=== PATIENT | female | born 1985 | race Caucasian/White ===

== ENCOUNTER 2020-01-01 06:15 | Inpatient (IN) | payer BC ==
[2020-01-01] MEDS ORDERED: DINOPROSTONE 10 MG INSERT.ER VAGINAL ONE (16:30)
[2020-01-02] MEDS ORDERED: TERBUTALINE 1 MG/ML VIAL SQ PRN (01:11)
[2020-01-02] MEDS ORDERED: OXYTOCIN 10 UNIT/ML 1 ML VIAL IM PRN (01:11)
[2020-01-02] MEDS ORDERED: METHYLERGONOVINE 0.2 MG/ML 1 ML AMP IM PRN (01:11)
[2020-01-02] MEDS ORDERED: CARBOPROST TROMETHAMINE 250 MCG/ML 1 ML AMP IM PRN (01:11)
[2020-01-02] MEDS ORDERED: LIDOCAINE 0.5% (PF) 5 MG/ML (50 ML SDV) SQ PRN (01:11)
[2020-01-02] MEDS: LACTATED RINGERS 1,000 ML IV SCH ×4 (01:23→19:51)
[2020-01-02] MEDS: BUTORPHANOL 1 MG/ML 1 ML VIAL IV PRN ×2 (01:24→08:10)
[2020-01-02 01:40] LABS: Basophils # (A) 0.1 k/uL (0-0.2); Basophils % (A) 0 %; Eosinophils % (A) 0 %; HCT 35.4 % (34.0-46.0); HGB 11.8 gm/dL (11.4-16.0); Lymphocytes # (A) 2.4 k/uL (1.0-4.8); Lymphocytes % (A) 17 %; MCH 30.6 pg (25.0-35.0); MCHC 33.3 g/dL (31.0-37.0); MCV 91.9 fL (80.0-100.0); Mean Platelet Volume 7.4; Monocytes # (A) 0.8 k/uL (0-1.0); Monocytes % (A) 6 %; Neutrophils # (A) 10.6 k/uL (1.3-7.7); Neutrophils % (A) 75 %; Platelet Count 241 k/uL (150-450); RBC 3.85 m/uL (3.80-5.40); RDW 13.1 % (11.5-15.5); WBC 14.2 k/uL (3.8-10.6)
[2020-01-02] MEDS: OXYTOCIN 30 UNITS/500 ML NS 30 UNIT in SALINE 1 500ML.BAG IV SCH (02:39)
[2020-01-02] MEDS ORDERED: ROPIVACAINE 5MG/ML 20ML VIAL ONE (11:10)
[2020-01-02] MEDS ORDERED: fentaNYL (PF) 50 MCG/ML 5 ML AMP ONE (11:10)
[2020-01-02] MEDS ORDERED: SODIUM CHLORIDE 0.9% 100 ML BAG ONE (11:10)
--- NOTE | 2020-01-02 16:56 | P.HPOB ---
History of Present Illness H&P Date: 01/01/20 Chief Complaint: Induction of labor 34-year-old presents at 39 weeks and 5 days for induction of labor. Her cervix is closed, 6 effaced, -2 station. She is elizabeth irregularly. heart tones 130 with moderate variability and reactive. Review of Systems All systems: negative Constitutional: Denies chills, Denies fever Eyes: denies blurred vision, denies pain Ears, nose, mouth and throat: Denies headache, Denies sore throat Cardiovascular: Denies chest pain, Denies shortness of breath Respiratory: Denies cough Gastrointestinal: Denies abdominal pain, Denies diarrhea, Denies nausea, Denies vomiting Genitourinary: Denies dysuria, Denies hematuria Musculoskeletal: Denies myalgias Integumentary: Denies pruritus, Denies rash Neurological: Denies numbness, Denies weakness Psychiatric: Denies anxiety, Denies depression Endocrine: Denies fatigue, Denies weight change Past Medical History Past Medical History: GERD/Reflux Additional Past Medical History / Comment(s): Gastroparesis. Obstetric history: This is her first and she's had care with me since the first trimester. Blood type is O+, hepatitis, rubella immune, but is B-, GBS negative, RPR nonreactive. History of Any Multi-Drug Resistant Organisms: None Reported Past Surgical History: Breast Surgery, Cholecystectomy, Orthopedic Surgery Additional Past Surgical History / Comment(s): Breast augmentation X2, right wrist surgery X2, wisdom teeth, lipomas removed from umbilical area. Past Anesthesia/Blood Transfusion Reactions: No Reported Reaction Past Psychological History: Anxiety Smoking Status: Former smoker Past Alcohol Use History: None Reported Additional Past Alcohol Use History / Comment(s): Quit smoking 13 yrs ago. Past Drug Use History: None Reported Medications and Allergies Home Medications Medication Instructions Recorded Confirmed Type Pnv,Calcium 72/Iron/Folic Acid 1 each PO DAILY 01/01/20 01/01/20 History [ Plus Tablet] Allergies Allergy/AdvReac Type Severity Reaction Status Date / Time cefuroxime [From Ceftin] Allergy Diarrhea Verified 01/01/20 16:13 Exam Osteopathic Statement: *. No significant issues noted on an osteopathic structural exam other than those noted in the History and Physical/Consult. Intake and Output 01/02/20 01/02/20 01/02/20 06:59 14:59 22:59 Other: # Voids 2 Heart: Regular rate and rhythm Lungs: Clear to auscultation bilaterally Abdomen: Soft, nontender Extremities: Negative Homans sign Results Result Diagrams: 01/02/20 01:31 Abnormal Lab Results - Last 24 Hours (Table) 01/02/20 Range/Units 01:31 WBC 14.2 H (3.8-10.6) k/uL Neutrophils # 10.6 H (1.3-7.7) k/uL Assessment and Plan (1) Normal labor Current Visit: Yes Status: Acute Code(s): O80 - ENCOUNTER FOR FULL-TERM UNCOMPLICATED DELIVERY; Z37.9 - OUTCOME OF DELIVERY, UNSPECIFIED SNOMED Code(s): 69464976 Plan: 1. Induction of labor with Cervidil and then amniotomy and Pitocin in the morning. 2. Anticipate normal vaginal delivery
[2020-01-02] MEDS ORDERED: CLINDAMYCIN 900 MG in DEXTROSE 5% IN WATER 50 ML IVPB ONE ×2 (19:40)
[2020-01-02] MEDS ORDERED: CITRIC ACID-SODIUM CITRATE 15 ML CUP PO ONE (19:40)
[2020-01-02] MEDS ORDERED: GENTAMICIN 340 MG in SODIUM CHLORIDE 0.9% 100 ML IVPB ONE (19:40)
[2020-01-02] MEDS ORDERED: ONDANSETRON 4 MG/2 ML VIAL ONE (20:03)
[2020-01-02] MEDS ORDERED: OXYTOCIN 10 UNIT/ML 1 ML VIAL ONE (20:03)
[2020-01-02] MEDS ORDERED: KETOROLAC 15 MG/ML 1 ML VIAL ONE (20:03)
[2020-01-02] MEDS ORDERED: NALOXONE 0.4 MG/ML 1 ML VIAL IV PRN (20:24)
[2020-01-02] MEDS ORDERED: NALBUPHINE 10 MG/ML (1 ML AMP) IV PRN (20:24)
[2020-01-02] MEDS ORDERED: ONDANSETRON 4 MG/2 ML VIAL IVP PRN (20:24)
[2020-01-02] MEDS ORDERED: HYDROmorphone 0.5 MG/0.5 ML SYRINGE IVP PRN (20:24)
[2020-01-02] MEDS ORDERED: diphenhydrAMINE 50 MG/ML 1 ML VIAL IVP PRN ×3 (20:24→20:45)
[2020-01-02] MEDS ORDERED: ZOLPIDEM 5 MG TAB PO PRN (20:45)
[2020-01-02] MEDS ORDERED: diphenhydrAMINE 50 MG CAP PO PRN (20:45)
[2020-01-02] MEDS ORDERED: diphenhydrAMINE 25 MG CAP PO PRN (20:45)
[2020-01-02] MEDS ORDERED: HYDROcodone/APAP 7.5-325MG 1 EACH TAB PO PRN (20:45)
[2020-01-02] MEDS ORDERED: METOCLOPRAMIDE 5 MG/ML 2 ML VIAL IVP PRN (20:45)
[2020-01-02] MEDS ORDERED: OXYTOCIN 20 UNITS/1000 ML NS 1,000 ML IV SCH (20:45)
[2020-01-02] MEDS ORDERED: LANOLIN CREAM 5 GM TUBE TOPICAL PRN (20:45)
[2020-01-02] MEDS ORDERED: ACETAMINOPHEN TAB 325 MG TAB PO PRN (20:45)
[2020-01-02] MEDS: KETOROLAC 15 MG/ML 1 ML VIAL IVP PRN (21:25)
[2020-01-03] MEDS: LACTATED RINGERS 1,000 ML IV SCH ×3 (00:10→22:49)
[2020-01-03] MEDS: KETOROLAC 15 MG/ML 1 ML VIAL IVP PRN ×2 (04:42→10:42)
[2020-01-03 06:15] LABS: Basophils % (A) 0 %; Eosinophils # (A) 0.1 k/uL (0-0.7); Eosinophils % (A) 0 %; HCT 32.7 % (34.0-46.0); Lymphocytes % (A) 13 %; MCH 30.7 pg (25.0-35.0); MCHC 33.5 g/dL (31.0-37.0); MCV 91.7 fL (80.0-100.0); Mean Platelet Volume 8.2; Monocytes # (A) 1.4 k/uL (0-1.0); Monocytes % (A) 6 %; Neutrophils # (A) 18.8 k/uL (1.3-7.7); Neutrophils % (A) 80 %; Platelet Count 243 k/uL (150-450); RBC 3.57 m/uL (3.80-5.40); RDW 13.1 % (11.5-15.5); WBC 23.5 k/uL (3.8-10.6)
--- NOTE | 2020-01-03 08:23 | P.PNOBGPC ---
Subjective - Subjective Principal diagnosis: Status post primary low transverse postop day #1 Interval history: Patient seen and examined. Denies nausea, vomiting, chest pain, shortness of breath or any calf pain. She is seen ambulating in her room. Patient reports: Reports appetite normal, Reports voiding normally, Reports pain well controlled, Reports ambulating normally [place]: doing well Objective - Vital Signs Latest vital signs: Vital Signs Temp Pulse Resp BP Pulse Ox 01/03/20 06:17 16 01/03/20 05:00 16 96 01/03/20 04:00 98.9 F 106 H 16 124/74 96 01/03/20 03:00 16 01/03/20 01:00 16 99 01/02/20 23:25 16 01/02/20 22:50 99.4 F 133 H 16 131/61 99 01/02/20 22:20 98.9 F 130 H 16 145/78 98 01/02/20 21:50 98.7 F 123 H 16 150/72 98 01/02/20 21:35 99.0 F 129 H 16 135/85 99 01/02/20 21:25 16 99 01/02/20 21:20 98.8 F 130 H 16 161/83 99 01/02/20 21:05 98.2 F 123 H 18 154/74 99 01/02/20 20:50 98.3 F 129 H 18 154/79 98 01/02/20 20:25 18 98 Intake and Output 01/02/20 01/03/20 01/03/20 22:59 06:59 14:59 Output Total 250 200 Balance -250 -200 Output: Urine 250 200 Uretheral (Ann) 200 Other: # Voids 0 - Exam Lungs: bilateral: normal Chest: Normal S1, Normal S2 Extremities: Present: normal Abdomen: Present: normal appearance, soft. Absent: distention, tenderness Incision: Present: normal, dry, intact Uterus: Present: normal, firm - Labs Labs: Abnormal Lab Results - Last 24 Hours (Table) 01/03/20 Range/Units 06:03 WBC 23.5 H (3.8-10.6) k/uL RBC 3.57 L (3.80-5.40) m/uL Hgb 11.0 L (11.4-16.0) gm/dL Hct 32.7 L (34.0-46.0) % Neutrophils # 18.8 H (1.3-7.7) k/uL Monocytes # 1.4 H (0-1.0) k/uL Assessment and Plan (1) Normal labor Current Visit: Yes Status: Resolved Code(s): O80 - ENCOUNTER FOR FULL-TERM UNCOMPLICATED DELIVERY; Z37.9 - OUTCOME OF DELIVERY, UNSPECIFIED SNOMED Code(s): 05173745 (2) Status post primary low transverse section Current Visit: Yes Status: Acute Code(s): Z98.891 - HISTORY OF UTERINE SCAR FROM PREVIOUS SURGERY SNOMED Code(s): 731406293 Plan: 1. Increase ambulation 2. Regular diet 3. Pain control 4. solutions market consultant
--- NOTE | 2020-01-03 09:21 | P.PN ---
Progress Note - Text Progress Note Date: 01/03/20 Postoperative day 1 status post section under epidural anesthesia, and epidural morphine given for postoperative analgesia, patient doing well, there is no anesthesia related complications, Patient had no headache, vital signs stable , Assessment and plan= postop day 1 status post , doing well there is no anesthesia related complication. note= patient was seen 06:50 in the morning
[2020-01-03] MEDS: SENNOSIDES-DOCUSATE SODIUM 1 EACH TAB PO SCH ×2 (10:43→21:13)
--- NOTE | 2020-01-03 12:10 | P.OP ---
Date of Procedure: 01/02/20 Preoperative Diagnosis: 1. at 39 and 6 2. Failure to progress Postoperative Diagnosis: 1. at 39 and 6 2. Failure to progress Procedure(s) Performed: Primary low transverse Anesthesia: epidural Surgeon: Bhakti Moe Starting Sheet Tank Operator #1: Natali Davis Estimated Blood Loss (ml): 656 IV fluids (ml): 1,000 Urine output (ml): 200 Pathology: other (Placenta) Condition: stable Disposition: floor Indications for Procedure: 34-year-old presented at 39 weeks and 6 days for induction of labor. She did have Cervidil and then Pitocin and amniotomy in the morning. She made 7 cm dilated but was this dilation for more than 2 hours with adequate contractions. Her temperature was starting to raise to about 100 and her heart rate was going up to 140. Informed consent was obtained and section was called. Operative Findings: Viable infant Apgars 9, 9, weight 8 lbs. 1 oz. Normal uterus, tubes, ovaries. Description of Procedure: Patient was taken to the operating room where epidural anesthesia was found be adequate. She was prepped and draped in normal sterile fashion in dorsal supine position with a leftward tilt. Pfannenstiel skin incision was made the scalpel and carried through to the underlying layer of fascia with the scalpel. Fascia was incised in midline and carried bilaterally with the Nash scissors. The superior aspect of the fascial incision was grasped with Zachery clamps elevated and the underlying rectus muscles dissected off with the Nash's. Attention was then turned to inferior aspect of same incision which in a similar fashion was grasped tented up and the underlying rectus muscles dissected off with the Nash's. The rectus muscles were the midline and the peritoneum was identified tented up and entered sharply with the scalpel. The incision was extended superiorly and inferiorly with good visualization of the bladder. The bladder blade was inserted and the vesicouterine peritoneum was incised the Metzenbaums then carried bilaterally and bladder flap created digitally. A low transverse incision was then made on the uterus with the scalpel. This was carried bilaterally and digital manner. 's head delivered atraumatically, nose and mouth bulb suctioned, cord clamped and cut, infant handed off to waiting nurses. Apgars 9,9, weight 8 lbs. 1 oz. Placenta delivered manually, intact with three-vessel cord. The uterus is exteriorized and cleared of all clots and debris. The uterine incision was closed with 0 Vicryl in a running locked fashion. Second layer of the same sutures used in imbricating fashion to obtain excellent hemostasis. Bladder flap was then reapproximated using 2-0 Vicryl in a running fashion. Both ovaries and tubes appeared normal. The uterus was placed back into the abdomen. The peritoneum was reapproximated using 2-0 Vicryl in a running fashion. The muscles were reapproximated using 2- 0 Vicryl in interrupted fashion. The fascia was reapproximated using 0 Vicryl in a running fashion. The subcutaneous tissues closed with 3-0 Vicryl running fashion. The skin was closed fco. Patient tolerated the procedure well, s ponge and instrument counts were correct times 2 and she was taken to the recovery room in stable condition.
[2020-01-03] MEDS: IBUPROFEN 600 MG TAB PO PRN (18:42)
[2020-01-03 22:47] VITALS: RESP 16
[2020-01-03] MEDS: OXYTOCIN 30 UNITS/500 ML NS 30 UNIT in SALINE 1 500ML.BAG IV SCH (22:49)
[2020-01-04] MEDS: IBUPROFEN 600 MG TAB PO PRN ×2 (04:22→13:18)
[2020-01-04] MEDS: SENNOSIDES-DOCUSATE SODIUM 1 EACH TAB PO SCH (08:43)
[2020-01-04 09:26] VITALS: BP 138/76; PULSE 80; TEMP 98.2
--- NOTE | 2020-01-04 12:00 | P.DS ---
Providers Date of admission: 01/01/20 15:59 Expected date of discharge: 01/04/20 Attending physician: Bhakti Moe Primary care physician: Stated None Hospital Course: Patient is doing very well post op day 2. She is ambulating, voiding and tolerating her diet. She voices no complaints and is requesting discharge home today. Prescription for [place] motor 4 to the pharmacy she'll follow up with Dr. Moe in 1 week. Discharge instructions are thoroughly and completely reviewed. All questions are answered for her. On physical exam vital signs are stable and afebrile. Heart regular, lungs clear, extremities without pain. Abdomen soft uterus firm and her incision is otherwise clean dry and intact. We'll plan to remove fco today prior to discharge. All the questions are answered for her at this time. Assessment postop day 2. Plan discharged home follow up with Dr. Moe in 1 week. Patient Condition at Discharge: Good Plan - Discharge Summary Discharge Rx Participant: Yes New Discharge Prescriptions: New Ibuprofen [Motrin] 600 mg PO Q6HR PRN #30 tab PRN Reason: Pain HYDROcodone/APAP 5-325MG [[place] 5-325] 1 tab PO Q4HR PRN #30 tab PRN Reason: Pain No Action Pnv,Calcium 72/Iron/Folic Acid [ Plus Tablet] 1 each PO DAILY Discharge Medication List Pnv,Calcium 72/Iron/Folic Acid [ Plus Tablet] 1 each PO DAILY 01/01/20 [History] HYDROcodone/APAP 5-325MG [[place] 5-325] 1 tab PO Q4HR PRN #30 tab 01/04/20 [Rx] Ibuprofen [Motrin] 600 mg PO Q6HR PRN #30 tab 01/04/20 [Rx] Follow up Appointment(s)/Referral(s): Bhakti Moe DO [Doctor of Osteopathic Medicine] - 1 Week Activity/Diet/Wound Care/Special Instructions: No heavy lifting, limit stairs and driving, and pelvic rest. If any high temperatures, heavy bleeding, or severe pain call my office Discharge Disposition: HOME SELF-CARE
== END 2020-01-04 16:48 | disposition home or self-care (01) | DRG 788 ==
LOC: 4FBP 15:59
PROVIDERS: ADMIT Obstetrics & Gynecology; ATTEND Obstetrics & Gynecology
PROC: 3E0P7VZ Introduction of Hormone into Female Reproductive, Via Natural or Artificial Opening (ICD-10-PCS; principal; 2020-01-02 20:26)
PROC: 3E033VJ Introduction of Other Hormone into Peripheral Vein, Percutaneous Approach (ICD-10-PCS; principal; 2020-01-02 20:26)
PROC: 10907ZC Drainage of Amniotic Fluid, Therapeutic from Products of Conception, Via Natural or Artificial Opening (ICD-10-PCS; principal; 2020-01-02 20:26)
PROC: 10D00Z1 Extraction of Products of Conception, Low, Open Approach (ICD-10-PCS; principal; 2020-01-02 20:26)
DX: O62.2 Other uterine inertia (principal); O64.8XX0 Obstructed labor due to other malposition and malpresentation, not applicable or unspecified; O99.344 Other mental disorders complicating childbirth; F41.9 Anxiety disorder, unspecified; K31.84 Gastroparesis; K21.9 Gastro-esophageal reflux disease without esophagitis; Z3A.39 39 weeks gestation of pregnancy; Z37.0 Single live birth; Z90.49 Acquired absence of other specified parts of digestive tract; Z87.891 Personal history of nicotine dependence; Z88.1 Allergy status to other antibiotic agents
CPT/HCPCS: 85025; 86850; 86900; 86901; 88307

== ENCOUNTER 2022-11-16 05:57 | Inpatient (IN) | payer BC ==
[2022-11-16] MEDS ORDERED: TRANEXAMIC 1,000 MG/100ML-NACL 1,000 MG in EMPTY BAG 1 BAG IV PRN (06:21)
[2022-11-16] MEDS ORDERED: miSOPROStoL 200 MCG TAB PO PRN (06:21)
[2022-11-16] MEDS ORDERED: METHYLERGONOVINE 0.2 MG/ML 1 ML AMP IM PRN (06:21)
[2022-11-16] MEDS ORDERED: TERBUTALINE 1 MG/ML VIAL SQ PRN (06:21)
[2022-11-16] MEDS ORDERED: CARBOPROST TROMETHAMINE 250 MCG/ML 1 ML AMP IM PRN (06:21)
[2022-11-16] MEDS ORDERED: OXYTOCIN 10 UNIT/ML 1 ML VIAL IM PRN (06:21)
[2022-11-16] MEDS ORDERED: LIDOCAINE 0.5% (PF) 5 MG/ML (50 ML SDV) SQ PRN (06:21)
[2022-11-16] MEDS: LACTATED RINGERS 1,000 ML IV SCH ×3 (06:40→16:45)
[2022-11-16] MEDS ORDERED: OXYTOCIN 30 UNITS/500 ML NS 30 UNIT in SALINE 1 500ML.BAG IV SCH ×2 (06:45→18:30)
[2022-11-16 06:58] LABS: Basophils # (A) 0.1 k/uL (0-0.2); Basophils % (A) 1 %; Eosinophils # (A) 0.1 k/uL (0-0.7); Eosinophils % (A) 1 %; HGB 12.4 gm/dL (11.4-16.0); Lymphocytes # (A) 2.1 k/uL (1.0-4.8); Lymphocytes % (A) 20 %; MCH 32.3 pg (25.0-35.0); MCHC 34.6 g/dL (31.0-37.0); MCV 93.3 fL (80.0-100.0); Mean Platelet Volume 7.9; Monocytes # (A) 0.8 k/uL (0-1.0); Monocytes % (A) 8 %; Neutrophils # (A) 7.6 k/uL (1.3-7.7); Neutrophils % (A) 71 %; Platelet Count 215 k/uL (150-450); RBC 3.86 m/uL (3.80-5.40); RDW 13.4 % (11.5-15.5); WBC 10.7 k/uL (3.8-10.6)
[2022-11-16] MEDS ORDERED: NALBUPHINE 10 MG/ML (10 ML MDV) IV PRN (10:38)
[2022-11-16] MEDS ORDERED: ROPIVACAINE 5 MG/ML 20 ML AMPULE ONE (11:38)
[2022-11-16] MEDS ORDERED: fentaNYL (PF) 50 MCG/ML 5 ML AMP ONE (11:38)
[2022-11-16] MEDS ORDERED: SODIUM CHLORIDE 0.9% 100 ML BAG ONE (11:38)
[2022-11-16] MEDS ORDERED: ZOLPIDEM 5 MG TAB PO PRN (18:27)
[2022-11-16] MEDS ORDERED: diphenhydrAMINE 25 MG CAP PO PRN (18:27)
[2022-11-16] MEDS ORDERED: diphenhydrAMINE 50 MG/ML 1 ML VIAL IVP PRN ×2 (18:27)
[2022-11-16] MEDS ORDERED: SIMETHICONE 80 MG CHEWABLE PO PRN (18:27)
[2022-11-16] MEDS ORDERED: LANOLIN CREAM 5 GM TUBE TOPICAL PRN (18:27)
[2022-11-16] MEDS ORDERED: diphenhydrAMINE 50 MG CAP PO PRN (18:27)
[2022-11-16] MEDS ORDERED: ACETAMINOPHEN TAB 325 MG TAB PO PRN (18:27)
[2022-11-16] MEDS ORDERED: BENZOCAINE/MENTHOL SPRAY 1 GM/SPRAY AEROSOL TOPICAL PRN (18:27)
[2022-11-16] MEDS ORDERED: HYDROCORTISONE 2.5% RECTAL CREAM 30 GM TUBE RECTAL PRN (18:27)
--- NOTE | 2022-11-16 18:31 | P.HPOB ---
History of Present Illness H&P Date: 11/16/22 Chief Complaint: TOLAC 37 year old for induction of labor, trial of labor after . Her cervix is 17 m dilated, 60% effaced, and -3 station. She is elizabeth irregularly. heart tones 135 with moderate variability and reactive. Patient has been counseled extensively on the risks and benefits of trial of labor after . Review of Systems All systems: negative Constitutional: Denies chills, Denies fever Eyes: denies blurred vision, denies pain Ears, nose, mouth and throat: Denies headache, Denies sore throat Cardiovascular: Denies chest pain, Denies shortness of breath Respiratory: Denies cough Gastrointestinal: Denies abdominal pain, Denies diarrhea, Denies nausea, Denies vomiting Genitourinary: Denies dysuria, Denies hematuria Musculoskeletal: Denies myalgias Integumentary: Denies pruritus, Denies rash Neurological: Denies numbness, Denies weakness Psychiatric: Denies anxiety, Denies depression Endocrine: Denies fatigue, Denies weight change Past Medical History Past Medical History: GERD/Reflux Additional Past Medical History / Comment(s): Gastroparesis. Obstetric history: First she had a section. This is her second and she's had care with me since the first trimester. Blood type is O+, hepatitis, rubella immune, but is B-, GBS negative, RPR nonreactive. History of Any Multi-Drug Resistant Organisms: None Reported Past Surgical History: Breast Surgery, Cholecystectomy, Orthopedic Surgery Additional Past Surgical History / Comment(s): Breast augmentation X2, right wrist surgery X2, wisdom teeth, lipomas removed from umbilical area. Past Anesthesia/Blood Transfusion Reactions: No Reported Reaction Past Psychological History: Anxiety Smoking Status: Former smoker Past Alcohol Use History: None Reported Additional Past Alcohol Use History / Comment(s): Quit smoking 13 yrs ago. Past Drug Use History: None Reported - Past Family History Father Family Medical History: Diabetes Mellitus, Hypertension Medications and Allergies Home Medications Medication Instructions Recorded Confirmed Type Vit No.180/Iron/Folic 1 each PO DAILY 01/01/20 11/16/22 History [ Plus Tablet] Aspirin 1 tab PO DAILY 11/16/22 11/16/22 History Allergies Allergy/AdvReac Type Severity Reaction Status Date / Time cefuroxime [From Ceftin] Allergy Diarrhea Verified 07/26/23 06:20 Exam Osteopathic Statement: *. No significant issues noted on an osteopathic structural exam other than those noted in the History and Physical/Consult. Vital Signs Temp Pulse Resp BP Pulse Ox 11/16/22 18:20 98.1 F 117 H 18 128/59 100 11/16/22 06:19 98.1 F 109 H 16 127/77 98 Intake and Output 11/16/22 11/16/22 11/16/22 06:59 14:59 22:59 Output Total 200 Balance -200 Output: Urine 200 Uretheral (Ann) 200 Other: # Voids 2 Weight 86.183 kg Heart: Regular rate and rhythm Lungs: Clear to auscultation bilaterally Abdomen: Soft, nontender Extremities: Negative Homans sign Results Result Diagrams: 11/16/22 06:30 Abnormal Lab Results - Last 24 Hours (Table) 11/16/22 Range/Units 06:30 WBC 10.7 H (3.8-10.6) k/uL Assessment and Plan (1) Previous delivery affecting Current Visit: Yes Status: Acute Code(s): O34.219 - MATERNAL CARE FOR UNSP TYPE SCAR FROM PREVIOUS DEL SNOMED Code(s): 826160320 (2) 40 weeks gestation of Current Visit: Yes Status: Acute Code(s): Z3A.40 - 40 WEEKS GESTATION OF SNOMED Code(s): 88600709 Plan: 1. Trial of labor after using amniotomy and Pitocin 2. Anticipate normal vaginal delivery
--- NOTE | 2022-11-16 18:33 | P.PROBDLV ---
Vaginal Delivery Note - . Vaginal Delivery Note: 37 year old for induction of labor, trial of labor after . Her cervix is 17 m dilated, 60% effaced, and -3 station. She is elizabeth irregularly. heart tones 135 with moderate variability and reactive. Patient has been counseled extensively on the risks and benefits of trial of labor after . Pitocin was started and amniotomy performed at 7:49 AM, thin meconium fluid noted. When the patient was uncomfortable she did use nitrous and then had some Nubain. This was not enough for pain control and she did get an epidural and she was about 2 cm dilated. Her cervix was completely dilated by 1715. She pushed, and delivered a viable female infant over intact perineum under epidural anesthesia at 1800. Head delivered OA, nuchal cord 1 easily reduced, anterior shoulder delivered gentle downward guidance followed by posterior shoulder and rest of body. Nose and mouth bulb suctioned, cord clamped and cut and placed on mother's abdomen. Apgars 8, 9, weight 8 pounds 1.3 ounces. Placenta delivered spontaneously, intact with three-vessel cord at 1803. Vagina, cervix, perineum and old scar were inspected. Second-degree midline laceration was repaired with 3-0 Vicryl. Estimated blood loss 300 mL. Mother and baby in stable condition.
[2022-11-16] MEDS: IBUPROFEN 600 MG TAB PO PRN (19:15)
[2022-11-16] MEDS: SENNOSIDES-DOCUSATE SODIUM 1 EACH TAB PO SCH (19:47)
[2022-11-17] MEDS: IBUPROFEN 600 MG TAB PO PRN ×2 (01:06→07:52)
[2022-11-17 05:16] LABS: Basophils # (A) 0.1 k/uL (0-0.2); Basophils % (A) 0 %; Eosinophils # (A) 0.1 k/uL (0-0.7); Eosinophils % (A) 0 %; HCT 32.1 % (34.0-46.0); HGB 10.8 gm/dL (11.4-16.0); Lymphocytes # (A) 3.3 k/uL (1.0-4.8); Lymphocytes % (A) 16 %; MCHC 33.6 g/dL (31.0-37.0); MCV 95.3 fL (80.0-100.0); Mean Platelet Volume 8.2; Monocytes # (A) 1.5 k/uL (0-1.0); Monocytes % (A) 7 %; Neutrophils # (A) 15.1 k/uL (1.3-7.7); Neutrophils % (A) 74 %; Platelet Count 204 k/uL (150-450); RBC 3.37 m/uL (3.80-5.40); RDW 13.7 % (11.5-15.5); WBC 20.4 k/uL (3.8-10.6)
[2022-11-17] MEDS: SENNOSIDES-DOCUSATE SODIUM 1 EACH TAB PO SCH (07:53)
[2022-11-17 08:00] VITALS: RESP 18; TEMP 98.1
--- NOTE | 2022-11-17 10:05 | P.DS ---
Providers Date of admission: 11/16/22 05:57 Expected date of discharge: 11/17/22 Attending physician: Bhakti Moe Primary care physician: Ken Patino - Discharge Diagnosis(es) (1) Previous delivery affecting Current Visit: Yes Status: Resolved (2) 40 weeks gestation of Current Visit: Yes Status: Resolved (3) Vaginal after , delivered, current hospitalization Current Visit: Yes Status: Acute Hospital Course: Pt presented for induction of labor. She underwent a normal vaginal delivery. PP course was uncomplicated. She denies N/V, F/C, CP, SOB or calf pain. Pt will be discharged home PPD #1 in stable condition to follow up with me in 6 weeks. Plan - Discharge Summary New Discharge Prescriptions: New Ibuprofen [Motrin] 600 mg PO Q6HR PRN #30 tab PRN Reason: Mild Pain (Scale 1 To 3) No Action Vit No.180/Iron/Folic [ Plus Tablet] 1 each PO DAILY Aspirin 1 tab PO DAILY Discharge Medication List Vit No.180/Iron/Folic [ Plus Tablet] 1 each PO DAILY 01/01/20 [History] Aspirin 1 tab PO DAILY 11/16/22 [History] Ibuprofen [Motrin] 600 mg PO Q6HR PRN #30 tab 11/17/22 [Rx] Follow up Appointment(s)/Referral(s): Bhakti Moe DO [Doctor of Osteopathic Medicine] - 01/04/23 10:45 am Discharge Disposition: HOME SELF-CARE
[2022-11-17 17:17] VITALS: BP 121/56; PULSE 107
== END 2022-11-17 18:45 | disposition home or self-care (01) | DRG 807 ==
LOC: 4FBP 05:57
PROVIDERS: ADMIT Obstetrics & Gynecology; ATTEND Obstetrics & Gynecology
PROC: 10E0XZZ Delivery of Products of Conception, External Approach (ICD-10-PCS; principal; 2022-11-16)
PROC: 0KQM0ZZ Repair Perineum Muscle, Open Approach (ICD-10-PCS; 2022-11-16)
PROC: 10907ZC Drainage of Amniotic Fluid, Therapeutic from Products of Conception, Via Natural or Artificial Opening (ICD-10-PCS; 2022-11-16)
PROC: 3E033VJ Introduction of Other Hormone into Peripheral Vein, Percutaneous Approach (ICD-10-PCS; 2022-11-16)
DX: O34.211 Maternal care for low transverse scar from previous cesarean delivery (principal); Z37.0 Single live birth; O69.81X0 Labor and delivery complicated by cord around neck, without compression, not applicable or unspecified; O77.0 Labor and delivery complicated by meconium in amniotic fluid; F41.9 Anxiety disorder, unspecified; K31.84 Gastroparesis; K21.9 Gastro-esophageal reflux disease without esophagitis; O99.62 Diseases of the digestive system complicating childbirth; O70.1 Second degree perineal laceration during delivery; O99.344 Other mental disorders complicating childbirth; Z3A.40 40 weeks gestation of pregnancy; Z79.82 Long term (current) use of aspirin; Z82.49 Family history of ischemic heart disease and other diseases of the circulatory system; Z87.891 Personal history of nicotine dependence; Z88.8 Allergy status to other drugs, medicaments and biological substances; Z90.49 Acquired absence of other specified parts of digestive tract
CPT/HCPCS: 85025; 86850; 86900; 86901